=== PATIENT | male | born 2000 | race Caucasian/White ===

== ENCOUNTER 2020-04-01 05:41 | Emergency (ER) | payer SELFPAY ==
[2020-04-01 05:46] VITALS: BP 140/74; PULSE 111; RESP 16; TEMP 37.6; O2SAT 97; BMI 20.7
--- NOTE | 2020-04-01 05:53 | ED_ITS ---
HPI - Fever General: Chief Complaint: Fever Stated Complaint: fever/cough Time Seen by Provider: 04/01/20 05:53 History of Present Illness: HPI Narrative: 19 yo male presents emergency room complaining of a fever for the last couple of days he is a little bit of a cough his temperatures been up to 106 on his thermometer at home, although he admits that he is not sure if it is accurate. He has taken Tylenol for cough is been nonproductive he denies any other symptoms no nausea vomiting or diarrhea no dysuria urgency or frequency no abdominal pain no skin lesions or rash. MD elicited complaint: fever Onset (ago): day(s) (2) Exacerbating factors: nothing Relieving factors: nothing Associated symptoms: Reports cough and sore throat; Deny abdominal pain, chest pain, confusion, diarrhea, dysuria, extremity pain, myalgias, nasal congestion, nausea, night sweats, rash, rhinorrhea, short of breath, sinus pain, stiffness or vomiting Treatments prior to arrival fever: acetaminophen Review of Systems Const: Denies: night sweats ENMT: Denies: nasal congestion or sinus pain Card: Denies: chest pain Resp: Denies: dyspnea, productive cough or non-productive cough GI: Denies: abdominal pain, nausea, vomiting or diarrhea : Denies: dysuria Musc: Denies: extremity pain Skin/Breast: Denies: rash or pruritus Neuro: Denies: confusion PFSH ED PFSH: Surgical History (Updated 04/01/20 @ 06:38 by Ganesh Valle DO) S/P appy Social History Smoking and tobacco status: never smoked Physical Exam Const: COMMON NORMALS: no acute distress GENERAL APPEARANCE: cooperative and comfortable ORIENTATION/CONSCIOUSNESS: Yes awake, Yes oriented to person, Yes oriented to place and Yes oriented to time HENMT: COMMON NORMALS: normocephalic, atraumatic, hearing grossly normal bilaterally, external ears normal, EAC's normal, TM's normal bilaterally, Normal nasal mucous membranes and turbinates present, moist oral mucous membranes and oropharynx normal HEAD & SCALP: normocephalic and atraumatic NOSE: Normal nasal mucous membranes and turbinates present EXTERNAL EAR: Yes external ears normal EXTERNAL AUDITORY CANAL: EAC's normal TYMPANIC MEMBRANE: TM's normal bilaterally THROAT: posterior oropharynx abnormal erythema (mild) Eye: COMMON NORMALS: Equal, round and reactive pupils present, EOMs intact bilaterally, conjunctivae normal and no scleral icterus CONJUNCTIVA: Yes conjunctivae normal PUPIL: Yes Equal, round and reactive pupils present Neck/C-Spine: COMMON NORMALS: full ROM, no lymphadenopathy, supple and no JVD Lymph: LYMPHATIC: no lymphadenopathy noted and no lymphedema noted Resp: COMMON NORMALS: normal respiratory effort, No retractions, No use of accessory muscles and clear to auscultation bilaterally AUSCULTATION: clear to auscultation bilaterally Cardio: COMMON NORMALS: no JVD, regular rate, regular rhythm and No murmurs present (Cardio) RATE: regular rate RHYTHM: regular rhythm GI: COMMON NORMALS: Soft to palpation and No hepatosplenomegaly present AUSCULTATION: Yes normoactive bowel sounds PALPATION: Yes Soft to palpation, No Tenderness to palpation present (GI), No Guarding due to palpation present (GI) and Yes No hepatosplenomegaly present Extremity: COMMON NORMALS: normal to inspection, capillary refill normal, no clubbing, cyanosis or edema, no calf tenderness and no pedal edema Neuro: SENSORIUM/ORIENTATION: Yes oriented to person, Yes oriented to place and Yes oriented to time Skin: COMMON NORMALS: no rashes or lesions noted GENERAL SKIN EXAM: no rashes or lesions noted Course Vital Signs: Vital signs: Vital Signs Temperature 99.7 F H 04/01/20 05:46 Pulse Rate 98 04/01/20 07:22 Respiratory Rate 18 04/01/20 07:22 Blood Pressure 107/74 04/01/20 07:22 Pulse Oximetry 98 04/01/20 07:22 MDM - Fever MDM Narrative: Medical decision making narrative: Reviewed findings with the patient. No significant abnormalities no signs of source of infection. He was using a tympanic thermometer at home suspect the readings he had at home with the extremely high temperatures were erroneous based on the laboratory findings and imaging today. In any event he is feeling fine and his exam is normal at this point will discharge him home under COVID-19 walking well quarantine precautions if he has any increase or change in symptoms she should return to the emergency room immediately or call 911. He was instructed to either call ahead to the emergency room or advise a dispatcher if he does need further assistance of that proper preparations can be made by EMS and hospital personnel. Lab Data: Labs: Lab Results 04/01/20 04/01/20 04/01/20 Range/Units 06:05 06:05 06:08 WBC 7.3 (4.5-13.0) 10^3/ uL RBC 4.73 (4.1-5.3) 10^6/u L Hgb 14.7 (11.7-16.6) g/dL Hct 43.0 (42.0-52.0) % MCV 90.9 (80-94) fL MCH 31.1 (28.0-34.0) pg MCHC 34.2 (30.0-36.0) g/dL RDW 12.1 (12.1-15.1) % Plt Count 196 (130-400) 10^3/c mm MPV 9.1 (7.4-10.4) fL Neut % (Auto) 75.8 % Lymph % (Auto) 10.2 % Owsley % (Auto) 13.5 % Eos % (Auto) 0.1 % Baso % (Auto) 0.1 % Neut # (Auto) 5.5 (1.8-8.0) 10^3/u L Lymph # (Auto) 0.7 L (1.5-6.5) 10^3/u L Owsley # (Auto) 1.0 H (0.2-0.9) 10^3/u L Eos # (Auto) 0.0 (0.0-0.8) 10^3/u L Baso # (Auto) 0.0 (0.0-0.1) 10^3/u L Nucleated RBC % (a uto) 0 % Nucleated RBCs # 0.0 /100WBC Sodium (136-145) mmol/L Potassium (3.5-5.1) mmol/L Chloride (98-107) mmol/L Carbon Dioxide (22-29) mmol/L Anion Gap (5-19) BUN (6-20) mg/dL Creatinine (0.7-1.2) mg/dL GFR Calculation (90-130) mL/min Glucose (65-115) mg/dL Calculated Osmolal ity (285-295) mOsm/k g Calcium (8.5-10.5) mg/dL Total Bilirubin (0.15-1.2) mg/dL AST (0-40) U/L ALT (0-41) U/L Alkaline Phosphata se (40-130) IU/L Total Protein (6.6-8.7) g/dL Albumin (3.5-5.2) g/dL Globulin (1.3-4.6) g/dL Urine Color (Yellow) Urine Appearance (CLEAR) Urine pH (5-7) Ur Specific Gravit y (1.005-1.030) Urine Protein (Negative) Urine Glucose (UA) (Normal) Urine Ketones (Negative) Urine Blood (Negative) Urine Nitrate (Negative) Urine Bilirubin (NEGATIVE) Urine Urobilinogen (Negative) mg/dL Ur Leukocyte Anita ase (Negative) Influenza Type A A g Negative (Negative) Influenza Type B A g Negative (Negative) Group A Strep Rapi d Negative (Negative) 04/01/20 04/01/20 Range/Units 06:08 07:19 WBC (4.5-13.0) 10^3/ uL RBC (4.1-5.3) 10^6/u L Hgb (11.7-16.6) g/dL Hct (42.0-52.0) % MCV (80-94) fL MCH (28.0-34.0) pg MCHC (30.0-36.0) g/dL RDW (12.1-15.1) % Plt Count (130-400) 10^3/c mm MPV (7.4-10.4) fL Neut % (Auto) % Lymph % (Auto) % Owsley % (Auto) % Eos % (Auto) % Baso % (Auto) % Neut # (Auto) (1.8-8.0) 10^3/u L Lymph # (Auto) (1.5-6.5) 10^3/u L Owsley # (Auto) (0.2-0.9) 10^3/u L Eos # (Auto) (0.0-0.8) 10^3/u L Baso # (Auto) (0.0-0.1) 10^3/u L Nucleated RBC % (a uto) % Nucleated RBCs # /100WBC Sodium 139 (136-145) mmol/L Potassium 3.7 (3.5-5.1) mmol/L Chloride 101 (98-107) mmol/L Carbon Dioxide 26 (22-29) mmol/L Anion Gap 15.7 (5-19) BUN 11 (6-20) mg/dL Creatinine 0.7 (0.7-1.2) mg/dL GFR Calculation 145.3 H (90-130) mL/min Glucose 106 (65-115) mg/dL Calculated Osmolal ity 284 L (285-295) mOsm/k g Calcium 9.0 (8.5-10.5) mg/dL Total Bilirubin 0.4 (0.15-1.2) mg/dL AST 14 (0-40) U/L ALT 16 (0-41) U/L Alkaline Phosphata se 66 (40-130) IU/L Total Protein 7.1 (6.6-8.7) g/dL Albumin 4.9 (3.5-5.2) g/dL Globulin 2.2 (1.3-4.6) g/dL Urine Color Yellow (Yellow) Urine Appearance Clear (CLEAR) Urine pH 7 (5-7) Ur Specific Gravit y 1.015 (1.005-1.030) Urine Protein Neg (Negative) Urine Glucose (UA) Norm (Normal) Urine Ketones Negative (Negative) Urine Blood Neg (Negative) Urine Nitrate Negative (Negative) Urine Bilirubin Neg (NEGATIVE) Urine Urobilinogen Norm (Negative) mg/dL Ur Leukocyte Anita ase Negative (Negative) Influenza Type A A g (Negative) Influenza Type B A g (Negative) Group A Strep Rapi d (Negative) Discharge Plan Discharge Patient Disposition: Home, Self-Care Clinical Impression: Viral infection Condition: Stable Discharge Orders: Discharge Order (Routine); Ordered 04/01/20 Ordered By: Ganesh Valle Discharge Diet: Usual diet Discharge Activity: Resume usual activity Activity Restrictions/Additional Instructions: You should remain in self quarantine until the results of your COVID-19 testing have returned. Follow the directions in the discharge packet you were given. If you begin to have significant difficulty with breathing or shortness of breath he should return immediately to the emergency room. If you do not need to call 911 or return to the emergency room please inform the dispatcher or call ahead to the emergency room that you are returning so we may prepare an isolation room for you or EMS can properly prepare to transfer you to the emergency room. Coding Level of Care Code ED Staff Electrical Engineer for Kadeem Barron Exam Comprehensive
[2020-04-01 05:54] VITALS: BP 107/85; PULSE 114; RESP 18; O2SAT 94
--- NOTE | 2020-04-01 05:59 | XR_ITS ---
WS: [id number] CHEST XRAY TECHNIQUE: Portable chest. CLINICAL INFORMATION: dyspnea/cough COMPARISON: None. FINDINGS: Heart: Normal cardiac silhouette. Lungs: Lungs are clear. No consolidation or pleural effusion. Bones: Normal visualized bony structures. XR/XR chest 1V portable [id number] IMPRESSION: Normal chest
[2020-04-01 06:15] LABS: Basophils % 0.1 %; Eosinophils % 0.1 %; Hemoglobin 14.7 g/dL (11.7-16.6); Lymphocytes # 0.7 10^3/uL (1.5-6.5); Lymphocytes % 10.2 %; Mean Corpuscular HGB Conc 34.2 g/dL (30.0-36.0); Mean Corpuscular Hemoglobin 31.1 pg (28.0-34.0); Mean Corpuscular Volume 90.9 fL (80-94); Mean Platelet Volume 9.1 fL (7.4-10.4); Monocytes % 13.5 %; Neutrophils # 5.5 10^3/uL (1.8-8.0); Neutrophils % 75.8 %; Nucleated Red Blood Cells % 0 %; Platelet Count 196 10^3/cmm (130-400); Red Blood Count 4.73 10^6/uL (4.1-5.3); Red Cell Distribution Width 12.1 % (12.1-15.1); White Blood Count 7.3 10^3/uL (4.5-13.0)
[2020-04-01] MEDS: sodium chloride 0.9% 1,000 ML 999 ML IV (06:18)
[2020-04-01 06:30] LABS: Alanine Aminotransferase 16 U/L (0-41); Albumin Level 4.9 g/dL (3.5-5.2); Alkaline Phosphatase 66 IU/L (40-130); Anion Gap 15.7 (5-19); Aspartate Amino Transferase 14 U/L (0-40); Blood Urea Nitrogen 11 mg/dL (6-20); Carbon Dioxide 26 mmol/L (22-29); Chloride 101 mmol/L (98-107); Globulin 2.2 g/dL (1.3-4.6); Glomerular Filtration Rate 145.3 mL/min (90-130); Glucose 106 mg/dL (65-115); Osmolality Calculated 284 mOsm/kg (285-295); Potassium 3.7 mmol/L (3.5-5.1); Sodium 139 mmol/L (136-145); Total Bilirubin 0.4 mg/dL (0.15-1.2); Total Protein 7.1 g/dL (6.6-8.7)
[2020-04-01 06:31] LABS: Rapid Strep A Test Negative (Negative)
[2020-04-01 06:38] LABS: Influenza A by IFA Negative (Negative); Influenza B by IFA Negative (Negative)
[2020-04-01 07:22] VITALS: BP 107/74; PULSE 98; RESP 18; O2SAT 98
[2020-04-01 07:30] LABS: Add Urine Microscopic? NO
[2020-04-01 07:38] LABS: Bilirubin Urine Neg (NEGATIVE); Blood Urine Neg (Negative); Glucose Urine UA Norm (Normal); Ketones Urine Negative (Negative); Leukocyte Esterase Urine Negative (Negative); Nitrate Urine Negative (Negative); Protein Urine Neg (Negative); Specific Gravity, Urine 1.015 (1.005-1.030); Urine Appearance Clear (CLEAR); Urine Color Yellow (Yellow); Urobilinogen Urine Norm (Negative); pH Urine 7 (5-7)
[2020-04-01 07:53] VITALS: BP 99/53; PULSE 107; RESP 18; O2SAT 96
[2020-04-02 12:36] LABS: Quest SARS-CoV-2 RNA NOT DETECTED (NOT DETECTED)
--- NOTE | 2020-04-02 13:14 | PC.NURSE ---
pt contacted and given the results of his COVID test
== END 2020-04-01 07:53 | disposition home or self-care (01) ==
PROVIDERS: Emergency Provider Family Medicine
DX: B34.9 Viral infection, unspecified (principal)
CPT/HCPCS: 12345; 36415; 71045; 80053; 81003; 85025; 87081; 87635; 87804; 87880; 96360; 99283; J7030